=== PATIENT | female | born 1975 ===

== ENCOUNTER 2019-03-03 04:32 | Emergency (ER) | payer SELFPAY ==
[2019-03-03 04:55] VITALS: O2SAT 99
[2019-03-03] MEDS ORDERED: Dexamethasone 4 mg/1 ml IM STA (05:19)
--- NOTE | 2019-03-03 05:21 | C.PDOC ---
History Of Present Illness 43 year old female presents to the ED c/o right sided back pain radiating towards rib cage for the past 5 days. Patient reports pain initially was intermittent, however since this morning pain worsened. 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 Patient does not remember any heavy lifting or excessive coughing. Patient denies injury, fall, trauma, SOB, palpitations, CP, rash, weakness, numbness. Time Seen by Provider: 03/03/19 05:03 Chief Complaint (Nursing): Back Pain History Per: Patient History/Exam Limitations: no limitations Onset/Duration Of Symptoms: Days Current Symptoms Are (Timing): Worse Location Of Pain/Discomfort: Diffuse Radiation Of Pain To:: Flank Quality Of Discomfort: "Pain" Associated Symptoms: denies: Nausea, Vomiting, Diarrhea, Urinary Symptoms Exacerbating Factors: Movement, Deep Breaths Recent travel outside of the [place]: No Additional History Per: Patient Abnormal Vaginal Bleeding: No Past Medical History Reviewed: Historical Data, Nursing Documentation, Vital Signs Vital Signs: Last Vital Signs Temp 98.2 F 03/03/19 04:44 Pulse 93 H 03/03/19 04:44 Resp 16 03/03/19 04:44 BP 116/83 03/03/19 04:44 Pulse Ox 99 03/03/19 04:44 - Medical History PMH: No Chronic Diseases Surgical History: No Surg Hx Family History: States: Unknown Family Hx - Social History Hx Alcohol Use: Yes Hx Substance Use: No - Immunization History Hx Tetanus Toxoid Vaccination: No Review Of Systems Constitutional: Negative for: Fever, Chills Eyes: Negative for: Vision Change Cardiovascular: Negative for: Chest Pain, Palpitations Respiratory: Negative for: Cough, Shortness of Breath Gastrointestinal: Positive for: Abdominal Pain. Negative for: Nausea, Vomiting Musculoskeletal: Positive for: Back Pain Skin: Negative for: Rash Neurological: Negative for: Weakness, Numbness, Headache, Dizziness Physical Exam - Physical Exam Appears: Non-toxic, In Acute Distress Skin: Normal Color, Warm, Dry, No Rash Head: Atraumatic, Normacephalic Eye(s): bilateral: Normal Inspection, PERRL, EOMI Oral Mucosa: Moist Neck: Normal ROM, No Midline Cervical Tenderness, Supple Chest: Symmetrical, Tenderness (right sided anterior rib cage) Cardiovascular: Rhythm Regular Respiratory: Normal Breath Sounds, No Rales, No Rhonchi, No Wheezing Gastrointestinal/Abdominal: Soft, No Tenderness, No Guarding, No Rebound Back: Other (right sided back tenderness) Extremity: Normal ROM, No Tenderness, No Swelling Neurological/Psych: Oriented x3, Normal Speech, Normal Cognition Gait: Steady ED Course And Treatment O2 Sat by Pulse Oximetry: 99 (ON RA) Pulse Ox Interpretation: Normal Medical Decision Making Medical Decision Making: Plan: * Decadron 8 mg IM * Toradol 30 mg IM * CXR On re-exam, the patient reports improvement of symptoms. Lungs are CTA, heart is RRR, abdomen is soft, non-tender and the patient is tolerating PO well. Follow up with the medical doctor within 1-2 days, return if worsened. Disposition - Disposition Referrals: [facility] [Outside] Disposition: HOME/ ROUTINE Disposition Time: 06:07 Condition: GOOD Additional Instructions: Follow up with the medical doctor within 1-2 days, return if worsened. 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 - Scribe Statement The provider has reviewed the documentation as recorded by the Scribe Ariel Solomon All medical record entries made by the Armandoibdereje were at my direction and personally dictated by me. I have reviewed the chart and agree that the record accurately reflects my personal performance of the history, physical exam, medical decision making, and the department course for this patient. I have also personally directed, reviewed, and agree with the discharge instructions and disposition.
[2019-03-03] MEDS ORDERED: Dexamethasone 4 mg/1 ml ONE (05:37)
[2019-03-03 06:35] VITALS: BP 119/80; PULSE 80; RESP 18; TEMP 97.6
--- NOTE | 2019-03-03 09:57 | RAD ---
Date of service: 03/03/2019 HISTORY: Pleuritic pain COMPARISON: No prior. TECHNIQUE: Chest PA and lateral FINDINGS: LINES AND TUBES: None. LUNG AND PLEURA: The lungs are well inflated and clear. No pleural effusion or pneumothorax. HEART AND MEDIASTINUM: The heart is not enlarged. No aortic atherosclerotic calcifications present. The hilar and mediastinal contours are within normal limits. SKELETAL STRUCTURES: The bony structures are within normal limits for the patient's age. VISUALIZED UPPER ABDOMEN: Normal. OTHER FINDINGS: None. IMPRESSION: No active pulmonary disease.
== END 2019-03-03 06:34 | disposition home or self-care (01) ==
LOC: C.ER 04:32
DX: M94.0 Chondrocostal junction syndrome [Tietze] (principal)
CPT/HCPCS: 71046; 81025; 96372; 99285; J1100; J1885